=== PATIENT | male | born 1980 | race Caucasian/White ===

== ENCOUNTER 2023-05-27 13:04 | Emergency (ER) | payer SELFPAY ==
[~2023-05-27] VITALS: Ht 170.2 cm; Wt 77.1 kg
[2023-05-27 13:06] VITALS: BP 156/95; PULSE 76; RESP 18; TEMP 98.1; O2SAT 99
[2023-05-27] MEDS ORDERED: FUL-GLO OP ONE (13:10)
[2023-05-27 13:19] VITALS: BP_SYST 132; BP_SYST 156; BP_DIAS 92; BP_DIAS 95; PULSE 70; RESP 18; O2SAT 98
== END 2023-05-27 13:25 | disposition home or self-care (01) ==
LOC: ER 13:04
DX: S05.01XA Injury of conjunctiva and corneal abrasion without foreign body, right eye, initial encounter (principal); X58.XXXA Exposure to other specified factors, initial encounter; Y93.89 Activity, other specified; Y92.89 Other specified places as the place of occurrence of the external cause; Y99.8 Other external cause status
CPT/HCPCS: 99283